=== PATIENT | female | born 1990 | race Caucasian/White ===

== ENCOUNTER → 2019-09-28 | Outpatient (CLI) | payer BC | END | disposition home or self-care (01) | LOC: LABWHC1 11:02 | PROVIDERS: ATTEND Family Medicine | DX: Z20.828 Contact with and (suspected) exposure to other viral communicable diseases (principal) | CPT/HCPCS: U0003; C9803 ==

== ENCOUNTER → 2020-03-08 | Outpatient (CLI) | payer BC ==
--- NOTE | 2020-03-08 20:14 | MR ---
EXAMINATION TYPE: MR lumbar spine wo con DATE OF EXAM: 03/08/2020 COMPARISON: NONE HISTORY: Low back pain for 1 year causing pain into bilateral outer thighs. TECHNIQUE: Multiplanar, multisequence imaging of the lumbar spine is performed without IV contrast. FINDINGS: Sagittal images of the lumbar spine show vertebral body heights to appear satisfactory. Ali gnment is straightened. There is disc desiccation with mild disc space narrowing at the T11-T12 level . Posterior disc herniation effaces the anterior thecal sac on sagittal images 8 and 9. Disc desiccat ion L3-L4 level. Disc desiccation with mild to moderate disc space narrowing L4-L5 level and heteroge neous Modic type II endplate changes. Mild multilevel anterior spurring. The conus medullaris is norm al in position and signal ending at L1-L2 disc space level Axial images show mild facet arthropathy at T12-L1, L1-L2, and L2-L3 levels. Axial images at L3-L4 level show increased signal posteriorly consistent with annular tear and mild f acet arthropathy bilaterally. Axial images at L4-L5 level shows [id number] facet degenerative changes bilaterally. There is l arge disc herniation extending above and below disc space measuring 19 mm craniocaudal dimension sagi ttal image 9. This disc herniation measures 15 mm transversely by 11 mm AP diameter axial image 8. Th ere is significant effacement of the anterior thecal sac along with the left lateral recess with exte nsion into the left foramina noted. Effacement of the central left L5 nerve is identified. Exiting le ft L4 nerve not effaced. Patent bilateral neural foramina. Significant mass effect on spinal canal no angel. Axial images at the L5-S1 level mild facet arthropathy bilaterally. Spinal canal is preserved and mabel ateral neural foramina are patent. Paraspinal muscle bulk is preserved. No suspicious incidental retroperitoneal findings. IMPRESSION: Straightening of lumbar spine with multilevel degenerative changes, attention to L4-L5 le devendra where large disc herniation noted. Neurosurgical referral is advised.
== END | disposition home or self-care (01) ==
LOC: RADMRIMAIN 15:03
PROVIDERS: ATTEND Family Medicine
DX: M51.26 Other intervertebral disc displacement, lumbar region (principal); M47.816 Spondylosis without myelopathy or radiculopathy, lumbar region; M47.815 Spondylosis without myelopathy or radiculopathy, thoracolumbar region; M47.817 Spondylosis without myelopathy or radiculopathy, lumbosacral region
CPT/HCPCS: 72148

== ENCOUNTER → 2020-04-10 | Outpatient (CLI) | payer BC ==
--- NOTE | 2020-04-11 09:40 | ECHOF ---
Referral Reason:R94.31 Abnormal EKG MEASUREMENTS -------- HEIGHT: 172.7 cm WEIGHT: 136.1 kg BP: IVSd: 1.2 cm (0.6 - 1.1) LVIDd: 3.2 cm (3.9 - 5.3) LVPWd: 1.2 cm (0.6 - 1.1) IVSs: 1.7 cm LVIDs: 1.4 cm LVPWs: 1.5 cm Ao Diam: 3.2 cm (2.0 - 3.7) AV Cusp: 2.4 cm (1.5 - 2.6) LA Diam: 2.6 cm (2.7 - 3.8) MV EXCURSION: 15.271 mm (> 18.000) MV EF SLOPE: 91 mm/s (70 - 150) EPSS: 2.5 cm MV E Gino: 0.98 m/s MV DecT: 209 ms MV A Gino: 0.95 m/s MV E/A Ratio: 1.03 RAP: 5.00 mmHg RVSP: 9.49 mmHg FINDINGS -------- This was a technically difficult study with suboptimal views. The left ventricular size is normal. There is mild concentric left ventricular hypertrophy. Overa ll left ventricular systolic function is normal with, an EF between 55 - 60 %. The right ventricle is normal in size. The left atrial size is normal. The right atrial size is normal. The aortic valve is trileaflet and appears structurally normal. The mitral valve is normal. There is trace mitral regurgitation. The tricuspid valve appears structurally normal. Trace tricuspid regurgitation present. Right patsy tricular systolic pressure is normal at < 35 mmHg. There is no pulmonic regurgitation present. The aortic root size is normal. IVC Not well visulized. There is no pericardial effusion. CONCLUSIONS -------- 1. The left ventricular size is normal. 2. There is mild concentric left ventricular hypertrophy. 3. Overall left ventricular systolic function is normal with, an EF between 55 - 60 %. 4. There is trace mitral regurgitation. 5. Trace tricuspid regurgitation present. 6. There is no pericardial effusion. CHIPPER FEEDER: Gabby Kang RDCS
== END | disposition home or self-care (01) ==
LOC: RADECHMAIN 12:05
PROVIDERS: ATTEND Family Medicine
DX: I51.7 Cardiomegaly (principal)
CPT/HCPCS: 93306; Q9950

== ENCOUNTER 2020-04-17 11:49 | Inpatient (IN) | payer BC ==
[2020-04-12 11:55] VITALS: BMI 45.6
[~2020-04-17 11:49] MED LIST: ceFAZolin 1,000 MG in SODIUM CHLORIDE 0.9% IRRIGATIO 1,000 ML IRRIGATION PRN; ceFAZolin 3 GM in SODIUM CHLORIDE 0.9% 100 ML IVPB PRN
[2020-04-17] MEDS ORDERED: LIDOCAINE 1% (10MG/ML) FOR IV START INTRADERMA ONE (12:17)
[2020-04-17] MEDS ORDERED: LACTATED RINGERS 1,000 ML IV ONE ×2 (12:17→14:19)
[2020-04-17] MEDS ORDERED: ONDANSETRON 4 MG/2 ML VIAL ONE (12:18)
[2020-04-17] MEDS ORDERED: MIDAZOLAM 2 MG/2 ML VIAL IVP ONE (12:21)
[2020-04-17] MEDS ORDERED: ONDANSETRON 4 MG/2 ML VIAL IVP ONE (12:21)
[2020-04-17] MEDS ORDERED: fentaNYL (PF) 50 MCG/ML 2 ML AMP ONE (15:14)
[2020-04-17] MEDS ORDERED: NEOSTIGMINE 1 MG/ML 10 ML VIAL ONE (15:14)
[2020-04-17] MEDS ORDERED: ALBUTEROL HFA INHALER INHALATION ONE (15:14)
[2020-04-17] MEDS ORDERED: MIDAZOLAM 2 MG/2 ML VIAL ONE (15:14)
[2020-04-17] MEDS ORDERED: PROPOFOL 10 MG/ML 20 ML VIAL IV ONE (15:14)
[2020-04-17] MEDS ORDERED: HYDROmorphone (PF) 1 MG/ML ONE (15:14)
[2020-04-17] MEDS ORDERED: GLYCOPYRROLATE 0.2 MG/ML 2 ML VIAL ONE (15:14)
[2020-04-17] MEDS ORDERED: ROCURONIUM 10 MG/ML (10 ML VIAL) IV ONE (15:14)
[2020-04-17] MEDS ORDERED: SUCCINYLCHOLINE CHLORIDE 100 MG/5 ML SYR IV ONE (15:14)
[2020-04-17] MEDS ORDERED: DEXAMETHASONE SOD PHOS (MDV) 100 MG/10 ML VIAL ONE (15:14)
[2020-04-17] MEDS ORDERED: LIDOCAINE 1% INJ 10MG/ML (20 ML MDV) ONE (15:14)
[2020-04-17] MEDS ORDERED: THROMBIN (BOVINE) 5,000 UNIT VIAL TOPICAL ONE ×2 (15:53→15:58)
[2020-04-17] MEDS ORDERED: BUPIVACAIN-EPI 0.5%-1:200,000 30 ML VIAL SQ ONE (15:53)
[2020-04-17] MEDS ORDERED: GELATIN SPONGE,ABSORB (LARGE) 1 EACH SPONGE TOPICAL ONE ×2 (15:53→15:58)
[2020-04-17] MEDS ORDERED: LIDOCAINE 2%-EPI 1:100,000 20 ML VIAL SQ ONE ×2 (15:55→15:58)
[2020-04-17] MEDS ORDERED: HYDROmorphone 0.5 MG/0.5 ML SYRINGE IVP PRN (18:21)
[2020-04-17] MEDS ORDERED: ONDANSETRON 4 MG/2 ML VIAL IVP PRN (18:21)
[2020-04-17] MEDS ORDERED: BENZOCAINE/MENTHOL LOZENG 1 EACH LOZENGE MUCOUS MEM PRN (18:21)
[2020-04-17] MEDS ORDERED: HYDROcodone/APAP 5-325MG 1 EACH TAB PO PRN (18:21)
[2020-04-17] MEDS ORDERED: methocarbamoL 750 MG TAB PO PRN (18:23)
--- NOTE | 2020-04-17 18:28 | P.OP ---
Date of Procedure: 04/17/20 Preoperative Diagnosis: Massive disc herniation L4 5, lower extremity radiculopathy, lower extremity weakness, degenerative disc disease L4 5, spondylolisthesis L4 5 Postoperative Diagnosis: Same Anesthesia: GETA Pathology: none sent Condition: stable Disposition: PACU Description of Procedure: DESCRIPTION OF PROCEDURE(S): BRIEF OPERATIVE NOTE Preoperative Diagnosis: Massive disc herniation L4 5, lower extremity radiculopathy, lower extremity weakness, degenerative disc disease L4 5, spondylolisthesis L4 5 Postoperative Diagnosis: Same Procedure: Laminectomy and decompression L4 [address] navigation aided Minimally invasive Posterior lateral decompression and facet fusion L4 5 Minimally invasive Transforaminal lumbar interbody fusion for a 360 fusion L4 5 Discectomy for decompression L4 5 Placement of interbody graft Use of computer navigation for fusion Local autogenous bone grafting Aspiration of bone marrow from the vertebral body pedicle or on the right Use of bone graft extenders Surgeon: Dr. Lyles Philatelic Consultant: Tapan TUBBS who is present throughout the entire the case persistence during positioning, dissection, exposure, visualization, and all crucial elements of the case as well as closure. Anesthesia: General anesthesia per Estimated blood loss: Approximately 250 mL Complications: None apparent Components implanted: K2M minimally invasive [place] pedicle screw system w ithscrews measuring 6.5 mm in diameter to rods one [place] interbody cage with 10 mL of osteo amp bio4 bone graft substitute and 30 mL of the BX bone fibers to supplement the local autogenous bone graft and bone marrow aspirate Disposition: To recovery room in good stable condition. OPERATIVE INDICATIONS The patient has had severe issues at their lower extremity in her lower back with significant worsening over the past several months. Over the past few months the patient had pain at her back and her left lower extremity. The patient is having severe radicular symptoms at her left lower extremity with weakness. The patient is having significant pain in her back. They are unable to obtain any comfort. We did aggressive conservative treatment with medications therapy and interventional pain management however she was not having any relief. The patient had a massive disc herniation at L4 5 causing severe stenosis centrally and presented late with left neural foramen. The patient also showed evidence of a listhesis The patient has been through conservative treatment. We discussed various treatment options including surgery, and the patient wishes to proceed with surgery We discussed the risk, patient's alternatives and benefits of surgery including but not limited to, risk of bleeding risk of infection, risk of need for further surgery, risk of decreased, loss of motion, muscle function, malunion nonunion, hardware failure, nerve damage, paralysis, heart attack, blindness and . They understood issues with the current pandemic and the possibility of exposure. OPERATIVE SUMMARY After discussing all the risks, patient alternatives and benefits at length, the patient elected to proceed with surgical intervention, signed informed consent, and presented for their procedure. The patient was seen and examined in the preoperative holding area and the surgical site was marked. The patient was given antibiotics and brought to the operating room. The patient was sedated and intubated by anesthesia in standard fashion. The patient was positioned on to the operating room table in a prone position on the appropriate frame which was well-padded and well molded. We were careful to pad any bony prominences and pressure points. We were careful to maintain the patient's cervical spine and good neutral alignment and position throughout. The patient was prepped and draped in a normal standard fashion. An appropriate timeout and keystone protocol performed. We were able to proceed with the surgery. The local wound area was infiltrated with local anesthetic. Over the right iliac crest I was able to make small stab incisions and establish a guidepin screw fixation to the iliac crest 2. I was able place the computer referencing device over the guidepins to establish an appropriate reference point [facility]. We then were able to place patient in an appropriate drape and do a navigation spin for visualization and 3-D reconst ruction of the lumbar spine. I was able utilize C-arm guidance and navigation to establish appropriate position over the pedicles bilaterally at the appropriate levels of L4 5 . With the appropriate levels confirmed was able to make small stab incisions over the appropriate pedicle sites bilaterally. Utilizing the computer navigation device I was able to establish bony landmarks at the right iliac crest for a bony reference point for the navigation device. I was able to establish a Jamshidi needle over the lateral aspect of the pedicle and advanced the trocar into the pedicle being careful not to breech superiorly inferiorly medially or laterally using computer navigation device. Position was confirmed regularly with AP and lateral images on C-arm and with the computer navigation device at the appropriate levels bilaterally at L4 5. I was able to establish the trocar into the pedicle appropriately into the posterior aspect of the vertebral body bilaterally at the appropriate levels. This was done at each of the pedicle positions and each of the vertebrae. At the superior vertebrae I was able to take approximately 25 mL of bone aspiration for use later in the case to supplement the allograft and autograft bone. I was able place the guidewire into the trocar and into the vertebral body appropriately under C-arm guidance. Dissection was taken down over the wire to the appropriate starting position for the screw placed. The appropriate length screw was chosen, threaded over the guidewire and screwed appropriately into the pedicle and vertebral body under C-arm guidance in excellent alignment and position with good bony purchase. This is done at each of the screw sites at the appropriate levels of L4 and L5 bilaterally. With the screws intact I extended the incision to connect the screw hole sites on the most symptomatic side on the left. I dissected down to establish access over the pars and lamina to the base of the spinous process. I was able to expose the facet joint. The capsule the facet was taken down and showed some facet arthrosis at the joint. I was able to use a combination of curettes and Kerrison rongeurs and a high-speed drill to take down the facet joint and do a facetectomy. Note was made of a massive disc herniation L4 5 and some scarring of the dura around the disc herniation. I was able to free up the dura and exposed the massive disc herniation which was able to be removed. There is severe disc loss within the disc space itself. I was able get excellent foraminal decompression and central decompression with undermining across midline to perform a laminectomy centrally and contralaterally. As able get good central decompression. The ligamentum flavum was taken down to further decompress centrally and at bilateral neural foramen. I was able to expose the disc space and visualize the traversing nerve root. I performed a complete discectomy with accommodation of curettes and rasps and scrapers. I was able g et good endplate preparation at the disc space. I sized for the appropriate size interbody spacer protecting the soft tissue and neural structures. The wound was copiously irrigated and suctioned dry. There is no evidence of any dural tear or leak. I was able to pack the disc space with local autogenous bone graft as well as a small amount of bone graft which was also placed into the interbody cage itself. Protecting the soft tissue structures and neural structures I was able place the interbody cage in good alignment and good position with good fit and fill at the interbody space at L4 and L5. Position was confirmed with C-arm guidance. Good hemostasis maintained. There is no evidence of any dural tear or leak. The wound was irrigated and suctioned dry. With the hardware intact, intraoperative C-arm imaging was again taken which showed good alignment and position of the hardware at the appropriate levels. We were then able to measure, contour and place the rods and appropriate hardware bilaterally. I was able to place capcrews, tighten them down, and torque them with the torque screwdriver appropriately. With this intact I was able to place the local autogenous bone graft with additional bone graft enhancer as necessary into the posterior lateral gutters over the decorticated transverse processes and facet joints on the contralateral side. The remainder of the bone graft was placed over the facet joint on the contralateral side after taking down the facet joint capsule. With the bone graft intact, a stable construct, and good decompression at the appropriate levels, we were able to proceed with closure. Good hemostasis was maintained. There is no evidence of dural tear or leak. The fascia was closed for a watertight closure. he subcuticular tissue was closed with absorbable suture. The wound was cleaned and dried and dressed with the appropriate dressing. The drapes were broken down. The patient was gently rolled back onto their hospital bed being careful to maintain their cervical spine and good neutral alignment and position. They were woken up by anesthesia, extubated, and brought to the recovery room in good stable condition. The patient will be admitted to the hospital for appropriate postoperative care, medical management and monitoring. We will continue to follow them closely about the postoperative course.
[2020-04-17] MEDS ORDERED: HYDROmorphone 0.5 MG/0.5 ML SYRINGE IVP ONE (18:53)
--- NOTE | 2020-04-17 20:14 | FL ---
EXAMINATION TYPE: FL guidance operating room, XR lumbar spine 2 or 3V DATE OF EXAM: 04/17/2020 CLINICAL HISTORY: Low back pain. TECHNIQUE: Fluoroscopy. COMPARISON: MRI lumbar spine March 08, 2020. FINDINGS: Fluoroscopic guidance was provided during lumbar spine minimally invasive procedure perfor [facility] by Dr. Lyles. A total of 30 seconds of fluoroscopic time was utilized during the procedure and 3 spot images was acquired. Intraoperative images acquired show placement of posterior interpedicular rods and screws along with metallic disc material at L4-L5 level at site of prominent disc herniation on MRI. Satisfactory align ment seen on intraoperative images obtained. IMPRESSION: As Above.
[2020-04-17] MEDS: SODIUM CHLORIDE 0.9% 1,000 ML IV SCH (20:16)
[2020-04-17] MEDS ORDERED: [UNRECOGNIZED DRUG - OTHER] PO SCH (21:00)
[2020-04-17] MEDS: ceFAZolin 3 GM in SODIUM CHLORIDE 0.9% 100 ML IVPB SCH (22:51)
[2020-04-17] MEDS: HYDROmorphone 1 MG/ML 1 ML SYRINGE IVP PRN (22:57)
[2020-04-18] MEDS: HYDROmorphone 1 MG/ML 1 ML SYRINGE IVP PRN (04:05)
[2020-04-18] MEDS: ceFAZolin 3 GM in SODIUM CHLORIDE 0.9% 100 ML IVPB SCH (07:51)
--- NOTE | 2020-04-18 08:33 | P.CONS ---
History of Present Illness - Reason for Consult Consult date: 04/18/20 Medical management - Chief Complaint Herniated nucleus pulposus - History of Present Illness This is a 30-year-old white female with back pain. The patient ended up having significant radicular symptoms MRI showed herniated disc. She is postop day for repair. Otherwise, her past medical history is relatively unremarkable. Pain is well controlled no voiding difficulties. She is no lower extremities and has an already ambulated yesterday. Review of Systems Constitutional: Denies chills, Denies fever Eyes: denies blurred vision, denies pain Ears, nose, mouth and throat: Denies headache, Denies sore throat Cardiovascular: Denies chest pain, Denies shortness of breath Respiratory: Denies cough Genitourinary: Denies dysuria, Denies hematuria Musculoskeletal: Denies myalgias Past Medical History Past Medical History: Pneumonia Additional Past Medical History / Comment(s): recent echo for rapid heartrate, herniated disks History of Any Multi-Drug Resistant Organisms: None Reported Past Surgical History: Orthopedic Surgery, Tonsillectomy Additional Past Surgical History / Comment(s): ORIF rt ankle/later hardware removed Past Anesthesia/Blood Transfusion Reactions: Family History of Problems w/ Anesthesia Additional Past Anesthesia/Blood Transfusion Reaction / Comm: "anesthesia did not work on her-did not knock her out" Smoking Status: Never smoker - Past Family History Sister(s) Family Medical History: Cancer, Pulmonary Embolus Additional Family Medical History / Comment(s): colon Father Family Medical History: Cancer Medications and Allergies Home Medications Medication Instructions Recorded Confirmed Type Allergy Pills(Name Unknown) 1 tab PO 209904/12/20 04/17/20 History Aviae Control 1 tab PO 209904/12/20 04/17/20 History Ibuprofen [Motrin] 800 mg PO DIRECTED PRN 04/12/20 04/17/20 History methocarbamoL [Robaxin] 750 mg PO TID PRN 04/12/20 04/17/20 History Allergies Allergy/AdvReac Type Severity Reaction Status Date / Time No Known Allergies Allergy Verified 04/12/20 11:42 Physical Exam Vitals: Vital Signs Temp Pulse Pulse Pulse Resp BP Pulse Ox 04/18/20 04:58 98.8 F 114 H 16 114/75 95 04/17/20 21:30 90 119/75 04/17/20 21:15 84 110/71 04/17/20 21:00 107 H 134/93 04/17/20 20:45 109 H 143/93 04/17/20 20:15 104 H 138/86 04/17/20 20:00 102 H 137/84 04/17/20 19:45 99 130/83 04/17/20 19:40 103 H 16 04/17/20 19:30 98.2 F 114 H 16 152/95 93 L 04/17/20 19:15 120 H 18 148/75 95 04/17/20 19:00 114 H 18 138/86 100 04/17/20 18:46 116 H 24 152/87 100 04/17/20 18:31 97.1 F L 128 H 24 146/86 98 04/17/20 12:07 98.2 F 121 H 16 160/95 96 Intake and Output 04/17/20 04/18/20 04/18/20 22:59 06:59 14:59 Intake Total 901 1480 Output Total 280 900 Balance 621 580 Intake: IV 901 Intake, IV Titration 1000 Amount Sodium Chloride 0.9% 1, 900 000 ml @ 75 mls/hr IV . [id number] [facility] Rx#:[id number] ceFAZolin 3 gm In Sodium 100 Chloride 0.9% 100 ml @ 200 mls/hr IVPB Q8H [facility] Rx#:[id number] Oral 480 Output: Urine 230 900 Estimated Blood Loss 50 Other: Voiding Method Indwelling Catheter - Constitutional General appearance: obese - EENT Eyes: EOMI - Neck Neck: no lymphadenopathy - Respiratory Respiratory: bilateral: CTA - Cardiovascular Rhythm: regular Heart sounds: normal: S1, S2 Abnormal Heart Sounds: no S3 Gallop - Gastrointestinal General gastrointestinal: soft, no tenderness - Integumentary Integumentary: no cellulitis - Neurologic Neurologic: CNII-XII intact Assessment and Plan (1) DDD (degenerative disc disease), lumbar Current Visit: Yes Status: Acute Code(s): M51.36 - OTHER INTERVERTEBRAL DISC DEGENERATION, LUMBAR REGION SNOMED Code(s): 71613600 Plan: Continue appropriate pain control. TOMY Feliz today. Pain control per surgery. Reconcile medications from home as necessary. We'll continue follow-up from medical perspective GI and DVT prophylaxis as per protocol.
[2020-04-18] MEDS ORDERED: SENNOSIDES-DOCUSATE SODIUM 1 EACH TAB PO SCH (09:00)
[2020-04-18] MEDS: HYDROcodone/APAP 5-325MG 1 EACH TAB PO PRN ×2 (09:29→12:54)
[2020-04-18 09:37] LABS: Basophils # (A) 0.04 X 10*3/uL (0.00-0.10); Basophils % (A) 0.2 %; Eosinophils # (A) 0 X 10*3/uL (0.04-0.35); Eosinophils % (A) 0 %; HCT 35.9 % (37.2-46.3); HGB 11.1 g/dL (12.0-15.0); Lymphocytes # (A) 2.13 X 10*3/uL (0.90-5.00); Lymphocytes % (A) 9.6 %; MCH 24.6 pg (27.0-32.0); MCHC 30.9 g/dL (32.0-37.0); MCV 79.4 fL (80.0-97.0); Mean Platelet Volume 10.7 fL (9.5-12.2); Monocytes # (A) 1.03 X 10*3/uL (0.20-1.00); Monocytes % (A) 4.7 %; Neutrophils # (A) 18.77 X 10*3/uL (1.80-7.70); Neutrophils % (A) 84.8 %; Platelet Count 415 X 10*3/uL (140-440); RBC 4.52 X 10*6/uL (4.10-5.20); RDW 14.8 % (11.5-14.5); WBC 22.13 X 10*3/uL (4.50-10.00)
[2020-04-18] MEDS: SODIUM CHLORIDE 0.9% 1,000 ML IV SCH (10:03)
[2020-04-18 11:00] LABS: African American GFR (CKD) 133.8 (60.0-200.0); Anion Gap 10.6 mmol/L (4.00-12.00); BUN/Creat Ratio 12.86 Ratio (12.00-20.00); Calcium 9.3 mg/dL (8.7-10.3); Carbon Dioxide 24.4 mmol/L (21.6-31.8); Non-African American GFR(CKD) 115.4 (60.0-200.0); Potassium 4.4 mmol/L (3.5-5.5)
[2020-04-18 11:52] VITALS: BP 144/73; PULSE 106; RESP 17; TEMP 98.6
--- NOTE | 2020-04-18 12:17 | P.DS ---
Providers Date of admission: 04/17/20 11:49 Expected date of discharge: 04/18/20 Attending physician: Doug Lyles Consults: 04/17/20 18:21 Consult Physician Routine Consulting Provider: Luca Balderas Consult Reason/Comments: Medical management Do you want consulting provider notified?: Yes Primary care physician: Luca Balderas - Discharge Diagnosis(es) (1) Lumbar herniated disc Current Visit: Yes Status: Acute (2) Lumbar stenosis Current Visit: Yes Status: Acute (3) Spondylolisthesis, lumbar region Current Visit: Yes Status: Acute (4) Lumbar back pain with radiculopathy affecting left lower extremity Current Visit: Yes Status: Acute (5) Left leg weakness Current Visit: Yes Status: Acute (6) Obesity Current Visit: Yes Status: Acute (7) History of pneumonia Current Visit: Yes Status: Acute (8) DDD (degenerative disc disease), lumbar Current Visit: Yes Status: Acute Hospital Course: This is a pleasant 30-year-old femalewho presented with L4-5 massive herniated nucleus pulposus, spondylolisthesis, and degenerative disc disease with severe spinal canal stenosis and left lower extremity radiculopathy with weakness who failed outpatient conservative therapy. She was admitted for and L4-5 minimally invasive posterior lateral decompression and fusion with transforaminal lumbar interbody fusion. The patient tolerated the procedure well and did well postoperatively. Her last dose of IV pain medication was at 4:00 this morning. She has had one tablet of [place] this morning at 9:30 AM. She feels her back pain is well-controlled. She is not currently complaining of any left lower extremity radiculopathy. Her Feliz catheter was discontinued this morning. She's been able to ambulate the hallways with her and she feels she is ready for discharge home today. We did discuss she must be able to void on her own prior to discharge home She's happy with her progress postoperatively. Condition on day of discharge stable. Patient will be discharged home. Patient was cleared preoperatively for surgery by Dr. Balderas. Patient currently denies any nausea, vomiting, fever, or chills. Patient is eating without difficulty but has not had much food postoperatively due to some difficulty ordering. Patient may shower Optifoam dressing intact. Patient may remove Optifoam dressing in 3 days and shower without a dressing at that time. Patient should refrain from driving until at least after their first follow-up appointment in the office. Patient should avoid excessive bending, lifting, and twisting; no lifting greater than 10 pounds. MAPS has been reviewed today, 04/18/2020, with an Overall Overdose Risk Score of 300. An "Opiod Start Talking" Form has been signed and placed in the patient's chart. A prescription has been written for [place] 5 mg/325 mg 1-2 tabs every 6 hours as needed for pain, dispensed #56. Patient may resume other previously prescribed home medications while avoiding Motrin 800 mg over the next 6 weeks postoperatively. Patient's other medical diagnoses include pneumonia and obesity. Physical Exam on day of discharge: Patient is awake, alert, and oriented 3 Vital signs stable Good chest excursion with deep inspiration and expiration Abdomen soft nontender No signs or symptoms of DVT; no calf pain Extensor hallucis longus, plantarflexion, and dorsiflexion positive sustained bilateral lower extremities Patient is able to perform hip flexion bilaterally without difficulty No pain with palpation around the surgical sites Incision is clean, dry, and intact; no erythema, purulence, or signs of infection Optifoam dressings intact Procedures: L4-5 minimally invasive posterior lateral decompression and fusion with transforaminal lumbar interbody fusion Patient Condition at Discharge: Stable Plan - Discharge Summary Discharge Rx Participant: Yes New Discharge Prescriptions: New HYDROcodone/APAP 5-325MG [[place] 5] 1 - 2 each PO Q6HR PRN #56 tab PRN Reason: Pain No Action Aviae Control 1 tab PO 2100 Allergy Pills(Name Unknown) 1 tab PO 2100 methocarbamoL [Robaxin] 750 mg PO TID PRN PRN Reason: Pain Ibuprofen [Motrin] 800 mg PO DIRECTED PRN PRN Reason: Pain Discharge Medication List Allergy Pills(Name Unknown) 1 tab PO 2100 04/12/20 [History] Aviae Control 1 tab PO 2100 04/12/20 [History] Ibuprofen [Motrin] 800 mg PO DIRECTED PRN 04/12/20 [History] methocarbamoL [Robaxin] 750 mg PO TID PRN 04/12/20 [History] HYDROcodone/APAP 5-325MG [[place] 5] 1 - 2 each PO Q6HR PRN #56 tab 04/18/20 [Rx] Follow up Appointment(s)/Referral(s): Tapan Noe, AVELINA [PHYSICIAN NUCLEAR REACTOR ENGINEER] - 2 Weeks (Patient may follow-up with Tapan Noe PA-C or Dr. Benjamin Lyles at [facility] in 2-3 weeks following discharge. ) Activity/Diet/Wound Care/Special Instructions: 1. Patient may shower with Optifoam dressing intact. 2. Patient may remove Optifoam dressing in 4 days and shower without a dressing at that time. 3. Patient should refrain from driving until at least after their first follow- up appointment in the office. 4. Patient should avoid excessive bending, twisting, lifting; avoid overhead lifting; no lifting greater than 10 pounds 5. Take medications as prescribed 6. Avoid anti-inflammatory medications over the next 6 weeks postoperatively 7. Do not soak in tub Discharge Disposition: HOME SELF-CARE
== END 2020-04-18 16:05 | disposition home or self-care (01) | DRG 454 ==
LOC: 2ORMAIN 11:49 → 5NMEDONC 18:46
PROVIDERS: ADMIT Orthopaedic Surgery Orthopaedic Surgery of the Spine; ATTEND Orthopaedic Surgery Orthopaedic Surgery of the Spine
PROC: 0SG00AJ Fusion of Lumbar Vertebral Joint with Interbody Fusion Device, Posterior Approach, Anterior Column, Open Approach (ICD-10-PCS; 2020-04-17)
PROC: 0ST20ZZ Resection of Lumbar Vertebral Disc, Open Approach (ICD-10-PCS; 2020-04-17)
PROC: 01NB0ZZ Release Lumbar Nerve, Open Approach (ICD-10-PCS; 2020-04-17)
PROC: 8E0WXBZ Computer Assisted Procedure of Trunk Region (ICD-10-PCS; 2020-04-17)
PROC: 0SG0071 Fusion of Lumbar Vertebral Joint with Autologous Tissue Substitute, Posterior Approach, Posterior Column, Open Approach (ICD-10-PCS; principal; 2020-04-17 13:00)
DX: M51.16 Intervertebral disc disorders with radiculopathy, lumbar region (principal); Z68.42 Body mass index [BMI] 45.0-49.9, adult; M43.16 Spondylolisthesis, lumbar region; E66.9 Obesity, unspecified; M48.061 Spinal stenosis, lumbar region without neurogenic claudication; Z79.3 Long term (current) use of hormonal contraceptives; Z79.899 Other long term (current) drug therapy; Z87.01 Personal history of pneumonia (recurrent); Z98.890 Other specified postprocedural states; Z80.0 Family history of malignant neoplasm of digestive organs; Z82.49 Family history of ischemic heart disease and other diseases of the circulatory system
CPT/HCPCS: 72100; 80048; 81025; 85025

== ENCOUNTER → 2023-02-25 | Outpatient (CLI) | payer OTHER ==
--- NOTE | 2023-02-25 19:24 | XR ---
EXAMINATION TYPE: XR cervical spine 5 views comp DATE OF EXAM: 02/25/2023 COMPARISON: None HISTORY: 33-year-old female chronic pain, M54.5,M54.2,M54.6 FINDINGS: There is reversal of the normal cervical lordosis. No predental space widening or prevertebral soft t issue swelling. Somewhat limited obliquity for assessment of the neuroforamen on the left. No signifi cant bony neuroforaminal narrowing on the right. Normal odontoid view. IMPRESSION: Reversal of the normal cervical lordosis could be positional or due to muscle spasm. No prevertebral soft tissue swelling or malalignment. No significant bony neural foraminal narrowing on the right. Veliz boptimal obliquity for assessment of the left-sided neuroforamen.
--- NOTE | 2023-02-25 19:56 | XR ---
EXAMINATION TYPE: XR thoracic spine 4 views complete, XR lumbosacral spine 5 views DATE OF EXAM: 02/25/2023 Comparison: None Clinical History: 33-year-old female with chronic pain, M54.5,M54.2,M54.6 Findings: Thoracic spine: 12 rib bearing thoracic vertebral bodies. All pedicles are visualized. There is mild degenerative dis c disease mid to lower thoracic spine. Vertebral body heights are preserved and alignment is maintain ed. Lumbar spine: 5 lumbar type vertebral bodies. Posterior and interbody fusion at L4-L5. Mild disc bulging suggested above the fusion at L3-L4. Mild facet arthropathy at the lower lumbar spine. Vertebral body heights a re preserved and alignment is maintained. Impression: 1. Thoracic spine: Mild degenerative disc disease mid to lower thoracic spine. No vertebral compressi on collapse or malalignment. 2. Lumbar spine: Status post L4-L5 posterior and interbody fusion. No vertebral compression collapse or malalignment.
== END | disposition home or self-care (01) ==
LOC: RADXRMAIN 11:29
PROVIDERS: ATTEND Family Medicine
DX: M51.34 Other intervertebral disc degeneration, thoracic region (principal); M54.2 Cervicalgia; G89.29 Other chronic pain; M43.26 Fusion of spine, lumbar region
CPT/HCPCS: 72050; 72072; 72110

== ENCOUNTER → 2023-09-19 | Outpatient (CLI) | payer OTHER ==
[2023-09-19 15:58] LABS: African American GFR (CKD) >90 (>60 ml/min/1.73 sqM); Blood Urea Nitrogen 11 mg/dL (7-17); Non-African American GFR(CKD) >90 (>60 ml/min/1.73 sqM)
--- NOTE | 2023-09-19 16:37 | CT ---
EXAMINATION TYPE: CT cervical spine w con CT DLP: 899.8 mGycm, Automated exposure control for dose reduction was used. DATE OF EXAM: 09/19/2023 4:25 PM COMPARISON: Cervical spine radiograph 02/25/2023. CLINICAL INDICATION:Female, 33 years old with history of M54.2 CERVICALGIA R20.2 M43.22; PHH, Pain in neck, numbness and pain radiating down into right arm x1 yr. TECHNIQUE: Axial CT images from the skull base to the inferior aspect of T2 we obtained after the une ventful administration of 100 mL of Isovue 300 contrast intravenously. Coronal and sagittal reformatt ed images were also reviewed. FINDINGS: Fracture: None. Osseous structures: Unremarkable Vertebral alignment: No spondylolisthesis. Reversal of the normal cervical lordosis. Spinal canal/Neural Foramina: Broad-based disc bulge at C4-C5 with minimal effacement of the anterior thecal sac. Posterior disc osteophyte complex with minimal effacement of the anterior thecal sac at C5-C6. No significant neural foraminal stenosis at any level identified. Neck soft tissues: Prevertebral soft tissues are within normal limits. Other: The airway is patent. The lung apices are clear. Bilateral anterior cervical chain prominent/e nlarged lymph nodes identified measuring up to 1.2 cm short axis. Example includes a 1.2 cm short axi s lymph node in the right mandibular region (series 9, image 43). Enlarged left thyroid lobe with dom inant appearing 3.4 cm heterogenous nodule with macrocalcification. IMPRESSION: 1. No evidence of cervical spine fracture. 2. Minimal degenerative disc disease at C4-C5 and C5-C6 without obvious central canal or neural barry inal stenosis. 3. Enlarged left thyroid lobe with dominant 3.4 cm nodule. Further evaluation with thyroid ultrasound is recommended. 4. Several nonspecific mildly prominent/enlarged bilateral anterior neck lymph nodes identified. May be reactive versus other etiologies. Can assess on thyroid ultrasound.
== END | disposition home or self-care (01) ==
LOC: RADCTMAIN 14:34
PROVIDERS: ATTEND Family Medicine
DX: M43.22 Fusion of spine, cervical region (principal); R20.2 Paresthesia of skin; M50.321 Other cervical disc degeneration at C4-C5 level; R59.0 Localized enlarged lymph nodes
CPT/HCPCS: 82565; 84520; 72126; 36415; Q9967

== ENCOUNTER → 2023-10-21 | Outpatient (CLI) | payer OTHER ==
--- NOTE | 2023-11-23 12:03 | US ---
Site ID Oren Lion ID [id number] Age/Gender: 33Y, F Order # N/A Procedure US thyroid st tissue head/neck Date 10/21/2023 4:19:00 PM EXAMINATION TYPE: US thyroid st tissue head/neck DATE OF EXAM: 11/03/2023 COMPARISON: CT cervical spine 09/19/2023 CLINICAL INDICATION: Female, 33 year old with history of nodule seen on CT. GLAND SIZE: Right Lobe: 5.5 x 1.9 x 2.0 cm Overall Parenchyma: homogeneous Left Lobe: 7.2 x 3.0 x 2.6 cm Overall Parenchyma: homogeneous Isthmus Thickness: 1.0 cm NODULES RIGHT: # of nodules measured on right: 0 LEFT: # of nodules measured on left: 1 1. 4.6 X 4.2 x 3.1 cm, lower , mixed cystic and solid, isoechoic nodule, which is taller than wide, with ill-defined margins, without echogenic foci. TR 4. ISTHMUS: # of nodules measured in the isthmus: 0 Bilateral neck scanned. Ovoid 1.4 x 1.3 x 0.8 cm mildly prominent lymph node identified within the ri t neck corresponding to the CT. IMPRESSION: 1. Thyromegaly with inferior left thyroid lobe 4.6 cm TR 4 nodule. Fine-needle aspiration is recomme nded. 2. Mildly prominent nonspecific right neck lymph node corresponding to CT.
== END | disposition home or self-care (01) ==
LOC: RADUSWWP 10-20 12:00
PROVIDERS: ATTEND Family Medicine
DX: E04.1 Nontoxic single thyroid nodule (principal)
CPT/HCPCS: 76536

== ENCOUNTER 2023-11-11 08:11 | Day surgery (SDC) | payer OTHER ==
[~2023-11-11 08:11] MED LIST changes: +LIDOCAINE 1% (10MG/ML) FOR IV START INTRADERMA PRN; -ceFAZolin 1,000 MG in SODIUM CHLORIDE 0.9% IRRIGATIO 1,000 ML IRRIGATION PRN; -ceFAZolin 3 GM in SODIUM CHLORIDE 0.9% 100 ML IVPB PRN
[2023-11-11] MEDS: IV FLUID CONTINUATION 1,000 ML IV ONE ×2 (08:25→08:57)
[2023-11-11 08:51] VITALS: RESP 16; TEMP 97
[2023-11-11 08:51] LABS: Glucose,Whole Blood 114 mg/dL (70-110)
[2023-11-11] MEDS: LACTATED RINGERS 1,000 ML IV SCH (08:54)
[2023-11-11] MEDS ORDERED: PROPOFOL 10 MG/ML 20 ML VIAL IV ONE (08:59)
--- NOTE | 2023-11-11 09:03 | P.GSHP ---
History of Present Illness H&P Date: 11/11/23 Chief Complaint: GERD, low iron, screening with family history of colon cancer in sister 33-year-old female here for EGD and colonoscopy. Patient with minimal reflux symptoms. Told recently her iron was low. Follows with hematology for that. Patient also having colonoscopy after sister was diagnosed and from metastatic colon cancer a few years ago. No bowel complaints. Past Medical History Past Medical History: Diabetes Mellitus, Pneumonia Additional Past Medical History / Comment(s): recent echo for rapid heartrate, herniated disks, PCOS History of Any Multi-Drug Resistant Organisms: None Reported Past Surgical History: Orthopedic Surgery, Tonsillectomy Additional Past Surgical History / Comment(s): ORIF rt ankle/later hardware removed, spinal fusion 2020 Past Anesthesia/Blood Transfusion Reactions: No Reported Reaction, Family History of Problems w/ Anesthesia Additional Past Anesthesia/Blood Transfusion Reaction / Comment(s): "anesthesia did not work on her-did not knock her out" Past Psychological History: Anxiety, Depression Smoking Status: Never smoker Past Alcohol Use History: Occasional Past Drug Use History: Marijuana - Past Family History Sister(s) Family Medical History: Cancer, Pulmonary Embolus Additional Family Medical History / Comment(s): colon Father Family Medical History: Cancer Medications and Allergies Home Medications Medication Instructions Recorded Confirmed Type Allergy Pills(Name Unknown) 1 tab PO 2100 04/12/20 11/11/23 History Cariprazine HCl [Vraylar] 3 mg PO DAILY 11/06/23 11/11/23 History Cyclobenzaprine [Flexeril] 10 mg PO Q8H PRN 11/06/23 11/11/23 History DULoxetine HCL [Cymbalta] 60 mg PO DAILY 11/06/23 11/11/23 History Empagliflozin [Jardiance] 25 mg PO DAILY 11/06/23 11/11/23 History Ferrous Sulfate [Iron] 325 mg PO DAILY 11/06/23 11/11/23 History Fluconazole 150 mg PO DAILY 11/06/23 11/11/23 History Gabapentin [Neurontin] 100 mg PO Q8H PRN 11/06/23 11/11/23 History hydrOXYzine HCL 10 mg PO DIRECTED PRN 11/06/23 11/11/23 History traZODone HCL [Desyrel] 50 - 100 mg PO HS 11/06/23 11/11/23 History Cariprazine HCl [Vraylar] 3 mg PO DAILY 11/07/23 11/11/23 History Allergies Allergy/AdvReac Type Severity Reaction Status Date / Time No Known Allergies Allergy Verified 11/11/23 08:51 Surgical - Exam Vital Signs Temp Pulse Resp BP Pulse Ox 97 F L 105 H 16 149/76 95 11/11/23 08:41 11/11/23 08:41 11/11/23 08:41 11/11/23 08:41 11/11/23 08:41 Physical exam: General: Well-developed, well-nourished HEENT: Normocephalic, sclerae nonicteric Abdomen: Nontender, nondistended Extremities: No edema Neuro: Alert and oriented Results - Labs Abnormal Lab Results - Last 24 Hours (Table) 11/11/23 Range/Units 08:48 POC Glucose (mg/dL) 114 H (70-110) mg/dL Assessment and Plan (1) Colon cancer screening Narrative/Plan: Will proceed with EGD and colonoscopy. Current Visit: Yes Status: Acute Code(s): Z12.11 - ENCOUNTER FOR SCREENING FOR MALIGNANT NEOPLASM OF COLON SNOMED Code(s): 207806471
--- NOTE | 2023-11-11 09:19 | P.PCN ---
Date of Procedure: 11/11/23 Procedure(s) Performed: PREOPERATIVE DIAGNOSIS: GERD, anemia, screening with family history of colon cancer POSTOPERATIVE DIAGNOSIS: Mild gastritis, small hiatal hernia, normal colonoscopy PROCEDURE: 1. EGD with biopsy 2. Colonoscopy ANESTHESIA: MAC SURGEON: Haris Osei M.D. SPECIMENS: Antrum ENDOSCOPIC PROCEDURE: The patient was on the endoscopy table in the left decubitus position. The Olympus gastroscope was inserted into the oropharynx and passed under direct visualization to the region of the third portion of the duodenum. From that point the scope was slowly withdrawn inspecting all surfaces carefully. There were no neoplastic inflammatory or polypoid lesions throughout the duodenum. The pylorus was widely patent. The stomach was carefully inspected. There was mild gastritis present. A biopsy of the antrum took place to rule out H. pylori. Retroflexion revealed a very small hiatal hernia measuring less than 1 cm in size. The esophagus was then carefully examined. There were no neoplastic inflammatory or polypoid lesions throughout the visualized esophagus. The patient was kept on the endoscopy table in the left decubitus position. The Olympus colonoscope was inserted into the anus and passed under direct visualization to the base of the cecum. The appendiceal orifice was visualized. From that point the scope was slowly withdrawn inspecting all surfaces carefully. There were no neoplastic inflammatory or polypoid lesions throughout the cecum, ascending, transverse, descending, sigmoid and rectum. There was no visible diverticulosis noted. The patient's prep was slightly suboptimal limiting her visualization slightly. Digital rectal examination was normal. The patient was taken to the recovery room in stable condition per anesthesia guidelines. RECOMMENDATIONS: Resume diet. Repeat colonoscopy 5 years.
[2023-11-11 09:39] VITALS: BP 125/91; PULSE 97
== END 2023-11-11 09:58 | disposition home or self-care (01) ==
LOC: ORWHC2ENDO 08:11
PROVIDERS: ATTEND Surgery
DX: Z80.0 Family history of malignant neoplasm of digestive organs
CPT/HCPCS: 43239; 45378; 88305

== ENCOUNTER 2023-11-14 09:05 | Day surgery (SDC) | payer OTHER ==
[2023-11-14] MEDS: ALPRAZolam 0.5 MG TAB PO STA (09:27)
[2023-11-14 09:45] VITALS: RESP 16; TEMP 98.2
[2023-11-14 10:44] VITALS: BP 121/79; PULSE 80
--- NOTE | 2023-11-14 10:51 | US ---
ULTRASOUND GUIDED FNA THYROID BIOPSY: CLINICAL HISTORY: Left thyroid nodule requested FINDINGS: The procedure was explained to the patient. The risks, complications, benefits and alternatives were discussed and any questions were answered. Informed consent was obtained. Patient was placed supin e on the ultrasound table and prepped and draped in the usual sterile fashion. Utilizing a 25 gauge needle, five passes were made into the requested left thyroid nodule. Patient was stable throughout the procedure. Pathology is pending. All elements of maximal barrier technique were utilized. IMPRESSION: 1. Successful ultrasound guided FNA thyroid biopsy.
== END 2023-11-14 10:35 | disposition home or self-care (01) ==
LOC: RADPROMAIN 09:05
PROVIDERS: ATTEND Family Medicine
DX: D34 Benign neoplasm of thyroid gland (principal)
CPT/HCPCS: 10005